=== PATIENT | female | born 1995 | race African-American/Black ===

== ENCOUNTER 2023-02-26 10:00 | Outpatient (RCR) | payer OTHER, SELFPAY ==
--- NOTE | 2023-01-28 12:08 | HP.PTEVAL_ITS ---
Patient's Visit Information NEERU DENNIS is a 27 year old F referred to Physical Therapy by RADHA Petty with a diagnosis of R knee sprain. Date of Evaluation: 01/28/23 Physical Therapist: Juan Luis Lake PT, ATC - Visit Plan Frequency: 3x /Week Duration: 4 Weeks Plan: R knee strengthening, balance and proprio, core strengthening, bike, and HEP - Subjective DOI: 01/06/23. 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 Pt reports the pain was on the lateral aspect of her R knee. Pt notes the pain now extends from the lateral knee to the medial aspect of her R knee. Pt notes her R knee pops now and feels very unstable. Pt reports she had x-rays which revealed no significant findings. Pt reports occasional numbness in her R knee. Pt reports no sig R knee PMHx prior to this episode. Pt reports her R knee does lock up on her on occasion. No sleep difficulty at this time secondary to pain. Pt reports she has 7 fights of stairs to negotiate at home. Pt is able to negotiate her stairs reciprocally. R knee pain is 3/10 while sitting at rest, but elevates to 5/10 at worst (by the end of her work day, or when she sits/stands for prolonged periods of time.) - Pain R knee Pain Intensity (Out of 10): 3 Pain Intensity Range: 5 - Objective Neuro: B LE sensation is WNL to light touch with exception to hyposensitivity on R gastroc. B patellar reflex= 2/3. Palpation: No crepitus with AROM. Significant pain on medial aspect of R knee. No obvious deformity. Gait: Pt ambulates with no significant deviations at this time. ROM: R knee 0-3 120 ; L knee 0-125. MMT: R knee flex= 13, ext= 24 #F; L knee flex= 30, ext= 31 #F. Special test: Pos McMurrays sign - Balance/Special Test Scores Lower Extremity Functional Score: 59 - Goals Goal 1:: Decrease R knee pain x 50% to aid with IADL's Goal Time Frame: 4-6 Weeks Goal 2:: Increase R knee ROM x 5-10 degrees to aid with squatting activity Goal Time Frame: 4-6 Weeks Goal 3:: Increase R knee strength x 5-10 #F to aid with stair negotiation Goal Time Frame: 4-6 Weeks Goal 4:: I with HEP Goal Time Frame: 4-6 Weeks - Rehabilitation Potential Physical Therapy Diagnosis: Pt has R knee pain, weakness, and limited ROM secondary to possible R meniscal pathology Rehabilitation Potential: Good - Anticipated Interventions Patient/Client Instruction: Educate patient on: Condition, Plan of Care For the Purpose of:: To improve self management Therapeutic Exercise to Include: Strength training, Endurance training, Balance training For the Purpose of:: To decrease pain, To increase ROM, To improve muscle performance and motor function Cryotherapy (ice pack, ice massage): Yes For the Purpose of:: To decrease pain Thank you for the opportunity to evaluate your patient. For Medicare and Medicare HMO plans, please review the plan of care and approve it. It will need to be FAXED BACK to us at [phone] for Medicare purposes. For Medicare only, by signing this I certify the plan of care. Please let me know if there are questions or concerns regarding this plan of care. Physician Signature: Date:____
--- NOTE | 2023-02-26 10:25 | HP.PTDCSUM_ITS ---
It has been my pleasure to treat NEERU DENNIS referred by RADHA Petty, with the diagnosis of R knee sprain for a total of 11 visit(s). Discharge Date: Please see the following information for a summary of their discharge status. Subjective: Pt reports she is ready for discharge today. No pain R knee Pain Intensity (Out of 10): 0 % Improvement: 100 Objective/Function: R knee pain 0/10. R knee ROM: 0-135 degrees. R knee MMT: flex= 26, ext= 31 #F. I with HEP Goal 1:: Decrease R knee pain x 50% to aid with IADL's Goal Progress: Goal Met Goal 2:: Increase R knee ROM x 5-10 degrees to aid with squatting activity Goal 3:: Increase R knee strength x 5-10 #F to aid with stair negotiation Goal 4:: I with HEP Goal Progress: Goal Met Plan: Discharge to [facility] If there are questions or concerns regarding this patient's physical therapy, please feel free to call me at [phone]. Thank you for the referral of this patient. Sincerely, Juan Luis Lake, PT, ATC Balance/Gait/Functional tests - Balance/Special Test Scores Lower Extremity Functional Score: 80
== END 2023-02-26 19:00 | disposition home or self-care (01) ==
LOC: PT 10:00
PROVIDERS: Referring Provider Physician Assistant; Visit Provider Physician Assistant
DX: S86.911A Strain of unspecified muscle(s) and tendon(s) at lower leg level, right leg, initial encounter (principal)
CPT/HCPCS: 97016; 97110; 97161; 97164